=== PATIENT | female | born 1985 | race Caucasian/White ===

== ENCOUNTER 2017-12-31 05:09 | Emergency (ER) | payer SELFPAY ==
[~2017-12-31] VITALS: Ht 162.6 cm; Wt 114.8 kg
[2017-12-31 05:15] VITALS: Ht 162.6 cm; Wt 114.8 kg
[2017-12-31 06:41] LABS: BASOPHIL % 0.4 % (0-2); PLATELET COUNT 209 x10^3mcL (130-400); RED CELL DISTRIBUTION WIDTH 13.9 % (11.5-14.5)
[2017-12-31 07:53] VITALS: BP 109/67
== END 2017-12-31 07:53 | disposition home or self-care (01) ==
LOC: ED 05:09
PROVIDERS: Emergency Medicine
DX: N93.8 Other specified abnormal uterine and vaginal bleeding (principal)